=== PATIENT | male | born 1955 | race Caucasian/White ===

== ENCOUNTER 2017-12-17 22:53 | Emergency (ER) | payer MEDICAID ==
[~2017-12-17] VITALS: Ht 182.9 cm; Wt 88.5 kg
[2017-12-17 23:10] VITALS: Ht 182.9 cm; Wt 88.5 kg
[2017-12-18 00:11] LABS: BASOPHIL % 1.4 % (0-2); RED CELL DISTRIBUTION WIDTH 12.8 % (11.5-14.5)
[2017-12-18 00:15] LABS: PLATELET COUNT 420 x10^3mcL (130-400)
[2017-12-18 00:56] LABS: ALBUMIN 3.7 g/dL (3.4-5.0); ALKALINE PHOSPHATASE 73 U/L (46-116); ALT/SGPT 18 U/L (16-63); AST/SGOT 14 U/L (15-37); BILIRUBIN TOTAL 0.6 mg/dL (0.20-1.00); CALCIUM 9.2 mg/dL (8.5-10.1); CARBON DIOXIDE 28.6 mmol/L (21-32); CHLORIDE SERUM 98 mmol/L (98-107); CREATININE SERUM 1.2 mg/dL (0.7-1.3); GFR1 > 60 mL/min; GLUCOSE SERUM 101 mg/dL (74-106); SODIUM SERUM 139 mmol/L (136-145); TOTAL PROTEIN, SERUM 7.8 g/dL (6.4-8.2)
[2017-12-18 01:17] VITALS: BP 125/80
[2017-12-18 01:20] LABS: POTASSIUM SERUM 2.8 mmol/L (3.5-5.1)
[2017-12-18] MEDS ORDERED: LISINOPRIL40 MG (01:46)
[2017-12-18] MEDS ORDERED: AMLODIPINE BESY10 M2 (01:47)
[2017-12-18] MEDS ORDERED: OMEPRAZOLE20 M4 (01:47)
[2017-12-18] MEDS ORDERED: HYDROCHLOROTH12.5 M2 (01:47)
[2017-12-18] MEDS ORDERED: SIMVASTATIN20 M1 (01:48)
[2017-12-19] MEDS ORDERED: CELEXA10 MG PO (13:13)
== END 2017-12-18 01:17 | disposition home or self-care (01) ==
LOC: ED 22:53
PROVIDERS: Emergency Medicine
DX: J11.1 Influenza due to unidentified influenza virus with other respiratory manifestations (principal); I10 Essential (primary) hypertension; E78.00 Pure hypercholesterolemia, unspecified; Z86.73 Personal history of transient ischemic attack (TIA), and cerebral infarction without residual deficits
CPT/HCPCS: 36415; 83880; 87804; Q0092

== ENCOUNTER 2017-12-18 01:24 | Inpatient (IN) | payer MEDICAID ==
[~2017-12-18] VITALS: Ht 182.9 cm; Wt 88.5 kg
[2017-12-18] MEDS ORDERED: LISINOPRIL40 MG (01:46)
[2017-12-18] MEDS ORDERED: AMLODIPINE BESY10 M2 (01:47)
[2017-12-18] MEDS ORDERED: OMEPRAZOLE20 M4 (01:47)
[2017-12-18] MEDS ORDERED: HYDROCHLOROTH12.5 M2 (01:47)
[2017-12-18] MEDS ORDERED: SIMVASTATIN20 M1 (01:48)
[2017-12-18 04:07] VITALS: BP 104/81
[2017-12-18 04:48] LABS: CHOLESTEROL/HDL RATIO 4.3; MAGNESIUM 2.1 mg/dL (1.8-2.4); PHOSPHOROUS 3.9 mg/dL (2.5-4.9)
[2017-12-18 05:30] VITALS: BP 104/81
[2017-12-18 06:29] LABS: microscopic required? NO
[2017-12-18 08:03] LABS: AMPHETAMINE QUAL UR NONE DETECTED (NEG <=1000)
[2017-12-18 08:42] LABS: UA SPECIFIC GRAVITY 1.025 (1.005-1.035); urine erythrocyte NEGATIVE (NEGATIVE)
[2017-12-18 09:32] LABS: T3 TOTAL 1.16 ng/mL
[2017-12-18 10:39] VITALS: BP 118/76
[2017-12-18 11:14] LABS: FREE T4 1.39 ng/dL (0.76-1.46); FREE THYROXINE INDEX 3.7 ug/dL (1.4-4.5); T4(THYROXINE) 9.8 ug/dL (4.7-13.3)
[2017-12-18 13:56] VITALS: BP 103/71
[2017-12-18 15:36] LABS: CARBON DIOXIDE 27.1 mmol/L (21-32); CHLORIDE SERUM 102 mmol/L (98-107); CREATININE SERUM 1.1 mg/dL (0.7-1.3); GFR1 > 60 mL/min; GLUCOSE SERUM 110 mg/dL (74-106); POTASSIUM SERUM 3.7 mmol/L (3.5-5.1); SODIUM SERUM 141 mmol/L (136-145)
[2017-12-18 17:50] VITALS: BP 129/85
[2017-12-18 22:16] VITALS: BP 103/66
[2017-12-19 06:07] VITALS: BP 111/71
[2017-12-19 07:59] LABS: CALCIUM 8.7 mg/dL (8.5-10.1); CHLORIDE SERUM 104 mmol/L (98-107); CREATININE SERUM 0.9 mg/dL (0.7-1.3); GFR1 > 60 mL/min; GLUCOSE SERUM 107 mg/dL (74-106); MAGNESIUM 2.1 mg/dL (1.8-2.4); PHOSPHOROUS 3.6 mg/dL (2.5-4.9); POTASSIUM SERUM 3.1 mmol/L (3.5-5.1); SODIUM SERUM 141 mmol/L (136-145)
[2017-12-19 08:02] VITALS: BP 113/78
[2017-12-19 08:11] LABS: RED CELL DISTRIBUTION WIDTH 12.8 % (11.5-14.5)
[2017-12-19 08:34] LABS: BASOPHIL % 0.5 % (0-2); PLATELET COUNT 355 x10^3mcL (130-400)
[2017-12-19 08:40] VITALS: Ht 182.9 cm; Wt 88.5 kg
[2017-12-19] MEDS ORDERED: CELEXA10 MG PO (13:13)
[2017-12-19 14:05] VITALS: BP 113/78
== END 2017-12-19 15:21 | disposition home or self-care (01) | DRG 52 ==
LOC: ED 01:24 → DU 02:27 → MU 02:27 → DU 03:46 → MU 12-19 09:57
PROVIDERS: Family Medicine
DX: G93.41 Metabolic encephalopathy (principal); F33.2 Major depressive disorder, recurrent severe without psychotic features; E87.6 Hypokalemia; I69.354 Hemiplegia and hemiparesis following cerebral infarction affecting left non-dominant side; I10 Essential (primary) hypertension; E78.00 Pure hypercholesterolemia, unspecified; K21.9 Gastro-esophageal reflux disease without esophagitis; E78.2 Mixed hyperlipidemia; J10.1 Influenza due to other identified influenza virus with other respiratory manifestations; F41.9 Anxiety disorder, unspecified; Z72.89 Other problems related to lifestyle; Z90.89 Acquired absence of other organs; Z82.49 Family history of ischemic heart disease and other diseases of the circulatory system; Z83.3 Family history of diabetes mellitus; Z80.9 Family history of malignant neoplasm, unspecified; Z85.71 Personal history of Hodgkin lymphoma
CPT/HCPCS: 84439; 94150; 97110-GP; 97116-GP; 97530-GP; 97535-GP; J1956; J3480; J7030; J7620; Q0092

== ENCOUNTER 2018-07-16 21:50 | Emergency (ER) | payer MEDICAID ==
[~2018-07-16] VITALS: Ht 182.9 cm; Wt 90.3 kg
[~2018-07-16 21:50] MED LIST: AMLODIPINE BESY10 M2; CELEXA10 MG PO; HYDROCHLOROTH12.5 M2; LISINOPRIL40 MG; OMEPRAZOLE20 M4; SIMVASTATIN20 M1
[2018-07-16 21:57] VITALS: Ht 182.9 cm; Wt 90.3 kg
[2018-07-16 22:50] LABS: BASOPHIL % 1.1 % (0-2); PLATELET COUNT 365 x10^3mcL (130-400); RED CELL DISTRIBUTION WIDTH 12.5 % (11.5-14.5)
[2018-07-16 22:58] LABS: CARBON DIOXIDE 31.3 mmol/L (21-32); CREATININE SERUM 1.3 mg/dL (0.7-1.3); POTASSIUM SERUM 3.3 mmol/L (3.5-5.1)
[2018-07-16 23:14] LABS: ALBUMIN 3.5 g/dL (3.4-5.0); BILIRUBIN TOTAL 0.6 mg/dL (0.20-1.00); CK-MB < 0.5 ng/mL (0-3.6); CREATINE KINASE 72 U/L (39-308); TOTAL PROTEIN, SERUM 7.2 g/dL (6.4-8.2)
[2018-07-16 23:56] LABS: UA SPECIFIC GRAVITY <=1.005 (1.005-1.035); microscopic required? YES; urine erythrocyte TRACE (NEGATIVE)
[2018-07-17 00:17] VITALS: BP 125/83
== END 2018-07-17 00:17 | disposition home or self-care (01) ==
LOC: ED 21:50
PROVIDERS: Emergency Medicine
DX: R53.1 Weakness (principal); I10 Essential (primary) hypertension; E78.00 Pure hypercholesterolemia, unspecified; Z86.73 Personal history of transient ischemic attack (TIA), and cerebral infarction without residual deficits
CPT/HCPCS: J7030; Q0092